=== PATIENT | male | born 1965 | race Caucasian/White ===

== ENCOUNTER 2023-12-30 21:33 | Inpatient (IN) | payer OTHER, SELFPAY ==
[2023-12-30] VITALS (9 sets, daily range): BP systolic 97–146; BP diastolic 59–95; BMI 39.1; BMI 38.3
--- NOTE | 2023-12-30 15:34 | ED.GENMED ---
History of Present Illness
<Boniat Hernandez PA-C - Last Filed: 12/30/23 20:25>
General
Chief Complaint: Heart Rate Problem
Source: patient
Exam Limitations: none
Time Seen by Provider: 12/30/23 15:32
Nursing documentation reviewed up to this point in time: agreed with
Travel History
Have you had any contact with someone who has COVID-19?: No
Do you have any symptoms of coronavirus? Fever > 100 degrees, chills, cough, shortness of breath, sore throat, loss of taste or smell, muscle aches, or headache?: No
History of Present Illness
History of Present Illness:
58-year-old male with a past medical history of sleep apnea, hypertension, type 2 diabetes, hypertension presenting emergency department today with concerns of a high heart rate. Patient was seeing his sleep doctor today for checkup with his sleep
apnea, when they did his vitals and saw that his heart rate was in the 150s. Patient states that this shocked him, as he currently has no symptoms. Patient denies palpitations, chest pain, shortness of breath, dizziness, lightheadedness. Patient
states that over the past 2 years, he has had intermittent palpitations but thought nothing of it and did not have any today. Patient states that he feels well, he denies fevers or chills, recent illnesses, recent hospitalizations. Patient does
have a high caffeine intake and drinks Diet Coke daily. Patient states that he never had anything like this before, has never went into an abnormal rhythm before. Patient states that his brother has had atrial fibrillation and his dad had some
heart disease later in life from smoking, but he denies any other family history of early cardiac disease.
<Erwin Hudson DO - Last Filed: 12/30/23 18:02>
Past History
ED Past Medical History: HTN, NIDDM and Other (Obstructive sleep apnea)
Review of Systems
<Bonita Hernandez PA-C - Last Filed: 12/30/23 20:25>
Review of Systems
All Other Systems: ROS reviewed and negative except as documented in HPI and ROS
Phy Exam
<Bonita Hernandez PA-C - Last Filed: 12/30/23 20:25>
Physical Exam
Physical Exam:
Vitals: Patient is tachycardic
General: Patient appears mildly anxious, generally well-appearing, nontoxic-appearing. Obese body habitus
Skin: Warm and dry, no rashes or lesions
Head: Normocephalic, atraumatic
Cardiac: Patient is tachycardic with a regular rhythm, no murmurs, rubs, gallop
Pulm: Normal respiratory effort, no wheezes, rales, rhonchi
Abdomen: No abdominal tenderness
Neuro: CN II-XII intact. AAOx3.
Course
<Bonita Hernandez PA-C - Last Filed: 12/30/23 20:25>
Orders/Labs/Results
Orders:
Orders
12/30/23 15:28
Electrocardiogram (*1) Urgent
Reason for Study: Tachycardia
EKG- Treatment ONCE
12/30/23 15:50
Complete Blood Count/With Diff Urgent
Comprehensive Metabolic Panel Urgent
TSH Reflex To Free T4 Urgent
Comment: ADDON
Troponin I Urgent
12/30/23 16:29
0.9% Sodium Chloride 1000 ml [Nss] 1,000 ml IV BOLUS
Diltiazem 125 mg/125 ml Nss [Cardizem] 125 mg in 125 ml IV NOW
Initial dose in mg/hr, then titrate:: 5
Titrate to keep:: Heart rate 80-100 bpm
Titrate by mg/hr:: 5 mg/hr
Frequency of titrations (minutes):: 15
Maximum dose in mg/hr:: 15
Diltiazem HCl [Cardizem] 10 mg IV NOW STA
12/30/23 17:34
Diltiazem HCl [Cardizem] 20 mg IV NOW STA
12/30/23 19:34
Diltiazem Extended Release [Cardizem Cd] 120 mg PO NOW STA
12/30/23 19:35
Electrocardiogram (*1) Urgent
Reason for Study: Tachycardia
EKG- Treatment ONCE
12/30/23 19:58
Add On- LAB Urgent
Tests Added?: TSH reflex T4
12/30/23 20:02
Heparin 4,000 units IV NOW STA
12/30/23 20:15
Heparin 31173 Units/250 ml 25,000 units in 250 ml IV PER PROTOCOL
Weight to be used for heparin protocol in kilograms (kg):: 120
Protocol:: Cardiac Tx/Acute Coronary
PTT Goal Range to be used:: PTT 73 to 111 seconds
Order type:: Initial
INITIAL Infusion Dose (UNITS/KG/hr) & then follow protocol:: 12 units/kg/hr
Infusion Dose in UNITS/hr & then follow protocol (UNITS/hr):: 1,000
INFUSION RATE in mL/hr & then follow protocol (mL/hr):: 10
PTT less than or equal to 64 seconds:: Increase rate by 200 units/hr (+ 2 mL/hr)
PTT 64.1 to 72.9 seconds:: Increase rate by 100 units/hr (+ 1 mL/hr)
PTT 73 to 111 seconds:: Target Range. No change in rate.
PTT 111.1 to 130.9 seconds:: Decrease rate by 100 units/hr (- 1 mL/hr)
PTT 131 to 199.9 seconds:: HOLD for 1 hr. Then decrease rate by 200 units/hr (- 2 mL/hr)
PTT greater than or equal to 200 seconds:: HOLD for 2 hrs & Notify Provider. Then decrease by 200 units/hr (-
2 mL/hr)
Lab follow-up:: Each change, PTT q6h until 2 consecutive are therapeutic. Then PTT
daily.
Abnormal Lab Results
12/30/23
15:50
MPV 10.8 H fL
(7.4-10.4)
Glucose 295 H mg/dl
(70-99)
12/30/23 15:50
12/30/23 15:50
Vital Signs
Initial and Last Documented VS:
Initial Vital Signs
Temp Pulse Resp BP Pulse Ox
98.2 F 150 18 146/93 97
12/30/23 15:27 12/30/23 15:27 12/30/23 15:27 12/30/23 15:27 12/30/23 15:27
Last Documented Vital Signs
Temp Pulse Resp BP Pulse Ox
98.2 F 99 28 104/59 97
12/30/23 15:27 12/30/23 19:45 12/30/23 19:45 12/30/23 19:38 12/30/23 19:45
<Erwin Hudson, - Last Filed: 12/30/23 18:02>
Orders/Labs/Results
Orders:
Orders
12/30/23 15:28
Electrocardiogram (*1) Urgent
Reason for Study: Tachycardia
EKG- Treatment ONCE
12/30/23 15:50
Complete Blood Count/With Diff Urgent
Comprehensive Metabolic Panel Urgent
TSH Reflex To Free T4 Urgent
Comment: ADDON
Troponin I Urgent
12/30/23 16:29
0.9% Sodium Chloride 1000 ml [Nss] 1,000 ml IV BOLUS
Diltiazem 125 mg/125 ml Nss [Cardizem] 125 mg in 125 ml IV NOW
Initial dose in mg/hr, then titrate:: 5
Titrate to keep:: Heart rate 80-100 bpm
Titrate by mg/hr:: 5 mg/hr
Frequency of titrations (minutes):: 15
Maximum dose in mg/hr:: 15
Diltiazem HCl [Cardizem] 10 mg IV NOW STA
12/30/23 17:34
Diltiazem HCl [Cardizem] 20 mg IV NOW STA
12/30/23 19:34
Diltiazem Extended Release [Cardizem Cd] 120 mg PO NOW STA
12/30/23 19:35
Electrocardiogram (*1) Urgent
Reason for Study: Tachycardia
EKG- Treatment ONCE
12/30/23 19:58
Add On- LAB Urgent
Tests Added?: TSH reflex T4
12/30/23 20:02
Heparin 4,000 units IV NOW STA
12/30/23 20:15
Heparin [id number] Units/250 ml 25,000 units in 250 ml IV PER PROTOCOL
Weight to be used for heparin protocol in kilograms (kg):: 120
Protocol:: Cardiac Tx/Acute Coronary
PTT Goal Range to be used:: PTT 73 to 111 seconds
Order type:: Initial
INITIAL Infusion Dose (UNITS/KG/hr) & then follow protocol:: 12 units/kg/hr
Infusion Dose in UNITS/hr & then follow protocol (UNITS/hr):: 1,000
INFUSION RATE in mL/hr & then follow protocol (mL/hr):: 10
PTT less than or equal to 64 seconds:: Increase rate by 200 units/hr (+ 2 mL/hr)
PTT 64.1 to 72.9 seconds:: Increase rate by 100 units/hr (+ 1 mL/hr)
PTT 73 to 111 seconds:: Target Range. No change in rate.
PTT 111.1 to 130.9 seconds:: Decrease rate by 100 units/hr (- 1 mL/hr)
PTT 131 to 199.9 seconds:: HOLD for 1 hr. Then decrease rate by 200 units/hr (- 2 mL/hr)
PTT greater than or equal to 200 seconds:: HOLD for 2 hrs & Notify Provider. Then decrease by 200 units/hr (-
2 mL/hr)
Lab follow-up:: Each change, PTT q6h until 2 consecutive are therapeutic. Then PTT
daily.
Abnormal Lab Results
12/30/23
15:50
MPV 10.8 H fL
(7.4-10.4)
Glucose 295 H mg/dl
(70-99)
12/30/23 15:50
12/30/23 15:50
Vital Signs
Initial and Last Documented VS:
Initial Vital Signs
Temp Pulse Resp BP Pulse Ox
98.2 F 150 18 146/93 97
12/30/23 15:27 12/30/23 15:27 12/30/23 15:27 12/30/23 15:27 12/30/23 15:27
Last Documented Vital Signs
Temp Pulse Resp BP Pulse Ox
98.2 F 99 28 104/59 97
12/30/23 15:27 12/30/23 19:45 12/30/23 19:45 12/30/23 19:38 12/30/23 19:45
<Bonita Hernandez PA-C - Last Filed: 12/30/23 20:25>
MDM/Problems Addressed
Differential Diagnosis Includes:
Differentials include atrial flutter, atrial fibrillation, multifocal atrial tachycardia, ACS, PE, panic disorder
MDM/Problems Addressed:
High heart rate
Chronic conditions affecting care: DM, HTN and Other (sleep apnea)
Acute Exacerbation and/or Progression of Chronic Illness: DM, HTN and Other (sleep apnea)
<Erwin Hudson DO - Last Filed: 12/30/23 18:02>
MDM/Problems Addressed
MDM/Problems Addressed:
High heart rate, atrial flutter with RVR, hyperglycemia
<Bonita Hernandez PA-C - Last Filed: 12/30/23 20:25>
*Pulse Oximetry
Patient hypoxic: no
*EKG
Interpreted by ED Provider?: Yes
EKG Intrepretation Date: 12/30/23
Interpretation: abnormal
Comparison EKG: no comparison EKG present
Heart Rate: 144
Rate: tachycardiac
Rhythm: atrial flutter
[place]: normal axis
QRS Pattern: normal QRS
Ischemia: no ischemia
<Erwin Hudson DO - Last Filed: 12/30/23 18:02>
*[employer] Interpretation
Rate: tachycardiac
Interpretation: abnormal
Rhythm: atrial flutter
*Critical Care Note
Total Time (30-74mins, 75-104mins- exclusive of procedures): 45 minutes
Data Reviewed
Source: patient and spouse
Prescriptions/Medications Considered But Not Given:
Consider beta-blockers but will titrate Cardizem
<Bonita Hernandez PA-C - Last Filed: 12/30/23 20:25>
Patient Management
Escalation/DeEscalation of care consider admission/obs:
58-year-old male with a past medical history of sleep apnea, hypertension, type 2 diabetes, hypertension presenting emergency department today with concerns of a high heart rate, sent from his sleep doctor. Patient is completely asymptomatic.
Patient was found to be in atrial flutter with a 2-1 conduction. Patient was started on a Cardizem drip given IV fluids. This brought his rate down to 110s. Occasionally, his rate dropped into the 90s but then it would return to the 100s again.
Patient states that he occasionally get palpitations intermittently for the past 2 years, so unsure when this might of started. Cardiology notified via [place] text, recommends admission considering heparin drip. Patient in agreement with plan,
patient accepted by hospitalist. Patient remains asymptomatic.
<Bonita Hernandez PA-C - Last Filed: 12/30/23 20:25>
Update Note
Update Note:
7:16-- Reevaluated patient, patient states that he is feeling well, remains asymptomatic,
ED Attending Note
<Bonita Hernandez PA-C - Last Filed: 12/30/23 20:25>
-
Portions of this chart may have been created with voice recognition software.� Occasional wrong word or��sound alike� substitutions may have occurred due to the inherent limitations of voice recognition software.
<Erwin Hudson DO - Last Filed: 12/30/23 18:02>
ED Attending Note
Patient seen and examined by attending physician: Yes
I performed the substantive portion of visit, reviewed & personally made and approve the management plan that is documented in note by myself or TAINA.: Yes
ED Attending Note:
58-year-old male with a history of obstructive sleep apnea who presents after he is found to be tachycardic. Found to be in atrial flutter. Patient is mostly asymptomatic. Unknown onset. He does admit to occasional off-and-on palpitations over
time. Exam: Awake and alert, heart regular, no murmurs, obese, lungs clear. Assessment and plan: Controlled rate. Unknown onset so ED cardioversion is not reasonable. Continue to monitor. IV fluids. The patient was counseled on the importance
of blood glucose control as well as proper diet and exercise. Likely obstructive sleep apnea leading to atrial stretch and atrial flutter. Continue to monitor closely
Discharge Plan
Departure
Patient Disposition: Admit
Date of Disposition: 12/30/23
Time of Disposition: 20:19
Admit to doctor: Dr. Alva
Presentation/result/management discussed w/ accepting MD/DO: Hospitalist
Discharge Problem:
Atrial flutter
Prescriptions:
No Action
metformin 1,000 mg Tablet
1,000 mg PO BID
atorvastatin 80 mg Tablet
80 mg PO DAILY
lisinopril 10 mg Tablet
10 mg PO BID
dapagliflozin propanediol [Farxiga] 10 mg Tablet
10 mg PO DAILY
ezetimibe 10 mg Tablet
10 mg PO DAILY
Referrals:
Deborah Martin DO [Family Provider] -
Interventions
Interventions:
*Risk Screen - Suicide Last Done: 12/30/23 15:27
*General Assessment Last Done: 12/30/23 15:56
*Neglect/Abuse Screening Last Done: 12/30/23 15:27
ED- Fall Risk Assessment Last Done: 12/30/23 15:56
*ED COVID-19 Vaccine History Last Done: 12/30/23 15:56
ED- Cardiac Assessment Last Done: 12/30/23 15:56
ED- Pulmonary Assessment Last Done: 12/30/23 15:56
[2023-12-30 16:01] LABS: % Basophils 0.8 % (0-2); % Eosinophils 0.5 % (0-6); % Immature Granulocytes 0.3 % (0-0.5); % Lymphocytes 30.2 % (20.5-51.1); % Monocytes 8.6 % (1.7-9.3); % Neutrophils 59.6 % (42.2-75.2); Absolute Basophils 0.1 10^3/uL (0-0.2); Absolute Monocytes 0.6 10^3/uL (0.1-0.6); Hematocrit 44.3 % (39.0-52.0); Hemoglobin 15.9 g/dL (13.0-18.0); Mean Corp Hgb Conc. 35.9 g/dL (33.0-37.0); Mean Corpuscular Hgb 29.9 pg (27.0-31.0); Mean Corpuscular Volume 83.3 fL (80.0-94.0); Mean Platelet Volume 10.8 fL (7.4-10.4); Nucleated Red Blood Cells % 0 % (-); Platelet Count 194 10^3/uL (130-400); Red Blood Cell Count 5.32 10^6/uL (4.70-6.10); Red Cell Dist. Width 12.7 % (11.5-14.5); White Blood Cell Count 6.6 10^3/uL (4.8-10.8)
[2023-12-30 16:19] LABS: ALT (SGPT) 27 U/L (0-50); AST (SGOT) 23 U/L (17-59); Albumin 4.3 g/dl (3.5-5.0); Alkaline Phosphatase 99 U/L (38-126); Blood Urea Nitrogen 15 mg/dl (9-20); Calcium 9.5 mg/dl (8.4-10.2); Carbon Dioxide 23 mmol/L (22-30); Chloride 103 mmol/L (98-107); Estimated Creatinine Clearance > 125 ml/min; Glucose 295 mg/dl (70-99); Potassium 4.3 mmol/L (3.5-5.1); Sodium 139 mmol/L (135-145); Total Bilirubin 0.7 mg/dl (0.2-1.3); eGFR > 60.00
[2023-12-30 16:24] LABS: Troponin I < 0.012 ng/ml
[2023-12-30] MEDS: NSS 1000 IV (16:38)
[2023-12-30] MEDS: CARDIZEM 10 MG IV (16:39)
[2023-12-30] MEDS: CARDIZEM 125 IV (16:44)
[2023-12-30] MEDS: CARDIZEM 20 MG IV (17:53)
[2023-12-30] MEDS: CARDIZEM CD 120 MG PO (19:38)
--- NOTE | 2023-12-30 21:11 | HPS.HSE ---
Family Physician
-
Family Physician: Deborah Martin
Chief Complaint
-
Rapid Heart Beat
History of Present Illness
Patient is a 58y M with PMH significant for FRANCISCA and DM-II who presents to ED for evaluation of rapid heart rate. Patient notes that he was seeing his sleep physician this afternoon for a routine visit and was noted to have a heart rate of 150
bpm. He was asymptomatic. Patient was advised to presented to the ED and tele / EKG here reveals atrial flutter with 2:1 block. Patient states that she has occasional palpitations / racing heart sensations. These started about 2 years ago after
having COVID. They are infrequent and resolve quickly. He did not have such symptoms today despite his heart rate of 150.
In the ED, patient is resting comfortably and has no complaints.
He notes that his brother has had A-Fib. His mother and father both had heart disease.
Medical History
Past Medical History
Past Medical History: Reports Other
Additional Past Medical History:
DM-II
FRANCISCA on CPAP
Obesity
Past Surgical History: Reports None and Other
Social History
Tobacco: Non-smoker
Alcohol: Occasional
Drug: None
Family History
Family History: Other (Brother: A-Fib Father: COPD, CAD Mother: CAD)
Allergies / Home Medications
Allergies reflects when Allergies were last updated in [employer].
Home Medications with original date entered in [employer]
Allergy/Medication List:
Allergies
Allergy/AdvReac Type Severity Reaction Status Date / Time
No Known Allergies Allergy Verified 12/30/23 15:54
Home Medications
atorvastatin 80 mg tablet 80 mg PO DAILY 12/30/23
dapagliflozin propanediol 10 mg tablet (Farxiga) 10 mg PO DAILY 12/30/23
ezetimibe 10 mg tablet 10 mg PO DAILY 12/30/23
lisinopril 10 mg tablet 10 mg PO DAILY 12/30/23
metformin 1,000 mg tablet 1,000 mg PO BID 12/30/23
Review of Systems
-
History Source: Patient
A 12 point ROS was completed and negative except as noted: Yes
Constitutional: Denies Fever, Fatigue or Chills
Respiratory: Denies Cough or Trouble Breathing
Cardiac: Denies Chest Pain or Palpitations
Abdomen/GI: Denies Abdominal Pain, Nausea, Vomiting or Diarrhea
: Denies Dysuria, Frequency or Flank Pain
Musculoskeletal: Denies Joint Pain or Edema
Neurological: Denies Dizzy or Headache
Psych: Denies Depression or Anxiety
Physical Exam
Vital Signs
Vital Signs
Temp Pulse Resp BP Pulse Ox
98.2 F 99 28 104/59 97
12/30/23 15:27 12/30/23 19:45 12/30/23 19:45 12/30/23 19:38 12/30/23 19:45
Physical Exam
General: Other (58y M in no acute distress.)
HEENT: Moist mucous membranes and Other (Thick neck.)
Respiratory: Clear; No Wheezes, Rales or Rhonchi
Cardiac: S1/S2 and Irregular Rhythm; No Murmur
GI: Soft, Non Tender, Non Distended and Normal Bowel Sounds
Musculoskeletal: No Clubbing, No Cyanosis and No Edema
Neuro: AO x 3
Laboratory Results
-
12/30/23 15:50
12/30/23 15:50
Laboratory Results
Total Bilirubin 0.7 mg/dl (0.2-1.3) 12/30/23 15:50
AST 23 U/L (17-59) 12/30/23 15:50
ALT 27 U/L (0-50) 12/30/23 15:50
Alkaline Phosphatase 99 U/L (38-126) 12/30/23 15:50
Troponin I < 0.012 ng/ml 12/30/23 15:50
Impression/Plan
-
A/P: Patient is a 58y F with PMH significant for DM-II and FRANCISCA on CPAP who presents to ED for evaluation of incidentally noted tachycardia.
Atrial Flutter
- Admit to IVU on Cardizem infusion and titrate as needed for rate control.
- Begin IV heparin infusion for anticoagulation.
- As patient is asymptomatic, onset is unknown.
- Cardiology evaluation in AM for additional recommendations / options.
- EKG with any new rhythm changes.
DM-II
- Stable. Hold PO meds acutely.
- Follow glucose and cover with SSI as needed.
- Update A1C.
FRANCISCA on CPAP
- Stable. Continue HS PAP therapy during stay. Patient has home unit with him.
Obesity due to excess calories
- Affects all aspects of care.
- Encourage healthy diet and increased exercise with goal of weight loss.
DVT Prophylaxis: On IV Heparin
Code Status: Full
[2023-12-30 21:17] LABS: TSH Reflex To Free T4 1.96 uIU/ml (0.47-4.68)
[2023-12-30 21:44] LABS: INR 1.03; PT 13.5 Sec (11.4-14.6)
[2023-12-30 21:45] LABS: APTT 27.3 Sec (23.4-35.0)
[2023-12-30] MEDS: HEPARIN 4000 UNITS IV (22:18)
[2023-12-30] MEDS: HEPARIN 25000 UNITS/250 ML IV (22:21)
--- NOTE | 2023-12-31 00:08 | PTCARENOTE ---
received patient from the ED. AAOx3. denies any pain. denies sob/palps. Aflutter on tele. HR currently 80s. cardizem gtt lowered to 10 ml/hr. bp stable. heparin gtt infusing at 10 ml/hr. 96% on RA. patient has own CPAP at the bedside. distilled
water provided. reviewed plan of care with patient and verbalized understanding. NPO at midnight. educated patient to inform RN with any changes. call shannon within reach.
[2023-12-31 00:41] VITALS: BP 105/71
[2023-12-31] MEDS: CARDIZEM 125 IV (01:30)
[2023-12-31 02:44] VITALS: BP 109/75
[2023-12-31 04:23] VITALS: BP 95/61
[2023-12-31 05:11] LABS: APTT 37.1 Sec (23.4-35.0)
[2023-12-31 05:19] LABS: Blood Urea Nitrogen 13 mg/dl (9-20); Calcium 8.8 mg/dl (8.4-10.2); Carbon Dioxide 22 mmol/L (22-30); Chloride 108 mmol/L (98-107); Estimated Creatinine Clearance > 125 ml/min; Glucose 167 mg/dl (70-99); Magnesium 1.8 mg/dl (1.6-2.3); Potassium 3.8 mmol/L (3.5-5.1); Sodium 136 mmol/L (135-145); eGFR > 60.00
[2023-12-31 06:52] VITALS: BP 115/84
[2023-12-31 06:55] LABS: Glucose - Point of Care 177 mg/dl (70-99)
--- NOTE | 2023-12-31 07:26 | CON.CAR ---
Addendum entered and electronically signed by Kaden Iglesias MD 12/31/23 12:18:
I saw and examined the patient.
The Scaffolding Helper's note was reviewed and I agree with the note.
Comment: Briefly, 58-year-old man past medical history of hypertension, hyperlipidemia, type 2 diabetes and FRANCISCA who presents after found to have tachycardia in the outpatient sleep medicine office
Evaluated in the [facility] and found to be in atrial flutter with rapid ventricular response
Was started on IV diltiazem for rate control and IV heparin for cardioembolic prophylaxis
Underwent LANNY direct-current cardioversion earlier today with presybeterian of normal sinus rhythm
Plan to discharge on Eliquis for cardioembolic prophylaxis, emphasized the importance of this medication
Plan for low-dose metoprolol 25mg daily for rate control
Outpatient contact assembler to be placed at time of discharge to assess for burden of arrhythmia
EP follow-up has been arranged
Original Note:
Consultation
Consultation Request
Date/Time Consultation Requested: 12/30/2023
Date/Time Consultation Performed: 12/31/2023
Requesting Provider: Dr. Alva
Performing Provider: Valeria Young PA-C for Dr. Henry
Reason for Consultation: Atrial flutter w/ RVR
Medical History
-
History of Present Illness:
Patient is a 58 year old male with past medical history significant for hypertension, hyperlipidemia, type 2 diabetes, obstructive sleep apnea with CPAP, obesity who presented 12/30/2023 with palpitations and tachycardia. Patient presented to his
sleep medicine physician for routine follow-up and was noted to be tachycardic. He admits to intermittent occasional palpitations at rest but otherwise was asymptomatic. He was instructed to go to the emergency department where he was found to be
in atrial flutter with rapid ventricular response. Troponin was negative. TSH 1.96. He was placed on IV heparin and IV diltiazem drip with improvement of heart rates. Patient states he is generally compliant with his CPAP. However he does fall
asleep most nights of the week on the couch for several hours before he goes to bed and uses his CPAP. He drinks socially 1 night a week with friends. At time of this evaluation patient sitting in bed resting comfortably. He denies chest pain,
shortness of breath, dizziness, lightheadedness, palpitations, edema, orthopnea or PND
PMH:
Hypertension
Hyperlipidemia
Type 2 DM
FRANCISCA on CPAP
Obesity
Cellulitis x 2
Past Medical History
Past Medical History: Other (See HPI)
Past Surgical History: None
Social History
Tobacco: Non-Smoker
Alcohol: Occasional (1-2 times a week)
Drug: None
Personal:
Living: With Family
Employment: Employed (Desk job)
Family History
Family History: Other (Brother: A-Fib, Father: COPD, CAD, Mother: CAD)
Allergies / Home Medications
Allergy/AdvReac Type Severity Reaction Status Date / Time
No Known Allergies Allergy Verified 12/30/23 15:54
Medication Instructions Recorded Confirmed Type
atorvastatin 80 mg tablet 80 mg PO DAILY High Cholesterol 12/30/23 12/30/23 History
dapagliflozin propanediol 10 mg 10 mg PO DAILY Diabetes 12/30/23 12/30/23 History
tablet (Farxiga)
ezetimibe 10 mg tablet 10 mg PO DAILY Hormonal Agent 12/30/23 12/30/23 History
lisinopril 10 mg tablet 10 mg PO DAILY Blood Pressure 12/30/23 12/30/23 History
metformin 1,000 mg tablet 1,000 mg PO BID Diabetes 12/30/23 12/30/23 History
Review of Systems
-
History Source: Patient
All other systems: Negative unless noted
Physical Exam
Vital Signs
Temp Pulse Resp BP Pulse Ox
97.7 F 74 18 95/61 97
12/31/23 06:50 12/31/23 06:50 12/31/23 06:50 12/31/23 04:23 12/31/23 06:50
GEN: No distress, awake, Ox3
HEENT: supple, anicteric, mmm
LUNGS: CTA, no wheezes/rales
CV: Reg, S1/S2, no murmur, rubs or gallops
ABD: soft, BS+, NT/ND
EXT: No edema, clubbing or cyanosis
NEURO: Gross non-focal
SKIN: No rash, warm, dry, pink
Lab Results
12/30/23 15:50
12/31/23 04:38
Troponin I < 0.012 ng/ml 12/30/23 15:50
Impression / Plan
-
Family Physician:� Deborah Martin
Chute Operator: None prior to admission, initial consult Dr Henry
Impression:
Presented 12/30/2023 with palpitations, tachycardia
Atrial flutter 2:1 w/ RVR, unknown duration
Hypertension
Hyperlipidemia
Type 2 DM
FRANCISCA on CPAP
Obesity
Cellulitis x 2
LANNY 12/31/2023: pending
Plan:
Patient is a 58 year old male with past medical history significant for hypertension, hyperlipidemia, type 2 diabetes, obstructive sleep apnea with CPAP, obesity who presented 12/30/2023 with palpitations and tachycardia. Patient presented to his
sleep medicine physician for routine follow-up and was noted to be tachycardic. He admits to intermittent occasional palpitations at rest but otherwise was asymptomatic. He was instructed to go to the emergency department where he was found to be
in atrial flutter with rapid ventricular response. Troponin was negative. TSH 1.96. He was placed on IV heparin and IV diltiazem drip with improvement of heart rates. Patient states he is generally compliant with his CPAP. However he does fall
asleep most nights of the week on the couch for several hours before he goes to bed and uses his CPAP. He drinks socially 1 night a week with friends. At time of this evaluation patient sitting in bed resting comfortably. He denies chest pain,
shortness of breath, dizziness, lightheadedness, palpitations, edema, orthopnea or PND.
Presented 12/30/2023 with palpitations and tachycardia and was noted to be in atrial flutter with rapid ventricular response
Typical atrial flutter with RVR, unknown duration
-Heart rates overall improved with IV diltiazem drip.
-Plan is for LANNY cardioversion today
-Keep n.p.o.
-Will start Eliquis 5 mg twice a day and stop heparin gtt
-Will have case management due cost analysis for Eliquis
-Will assess LV function and valves w/ with LANNY. Based on EF will decide if patient should be placed on beta-wanda (if EF is reduced) or calcium channel wanda (if EF is preserved).
-Patient would be ideal candidate for atrial flutter ablation. Will arrange for patient to go home with 5-day [place] [facility] monitor to see if he is having any atrial fibrillation in addition to his atrial flutter to help further guide long-term course
regarding Ablation (Typical Aflutter vs PVI w/ Aflutter ablation) he would need as outpatient.
-Follow up with EP as outpatient
Obstructive sleep apnea on CPAP. Patient reports good compliance continue to follow with outpatient sleep medicine physician
History of diabetes
-Continue metformin, Farxiga and lisinopril.
Data Reviewed
-
EKG: Report Reviewed by me, Discussed with Physician, Discussed with Nurse and Discussed with Patient
Labs: Labs Reviewed by me, Discussed with Physician, Discussed with Nurse and Discussed with Patient
Old Records: Reviewed
[2023-12-31] MEDS: LIPITOR 80 MG PO (07:50)
--- NOTE | 2023-12-31 07:58 | W.PN.HOSP.TC ---
Today's Communication/Plan
-
discharge
Assessment / Plan
Assessment / Plan
Physical Exam
General: No acute distress appears comfortable
HEENT: Moist mucous membranes Thick neck
Respiratory: Clear; No Wheezes, Rales or Rhonchi
Cardiac: S1/S2 NSR
GI: Soft, Non Tender, Non Distended Normal Bowel Sounds
Musculoskeletal: No Clubbing, No Cyanosis and No Edema
Neuro: AO x 3
A/P:� Patient is a 58F with PMH significant for DM-II and FRANCISCA on CPAP who presents to ED for evaluation of incidentally noted tachycardia.
Atrial Flutter
- Admitted to IVU
-cardizem gtt completed, started on metoprolol
- hep gtt transitioned to [facility]
- As patient is asymptomatic, onset is unknown.
Cardiology eval appreciated
-successful Cardioversion 12/30
-outpatient lunchroom monitor placed
DM-II
�- A1c appreciated 9.8
-sugars otherewise well controlled during say
-Home oral diabetic medications resumed
�- outpatient follow up with patient's footwear sales associate recommended
FRANCISCA on CPAP
�- Stable.� Continue HS PAP therapy during stay.� Patient has home unit with him.
Obesity due to excess calories
�- Affects all aspects of care.
�- Encourage healthy diet and increased exercise with goal of weight loss.
DVT Prophylaxis:� On IV Heparin completed transitioned to Eliquis as above
Code Status:� Full
Medically stable for discharge home with outpatient follow up recommendations
Discussed with patient and his Kaley
Total Time Preparing Discharge __45 minutes including examination of the patient, summary of the hospital stay, instructions for continuing care to all relevant caregivers; and preparation of discharge records, prescriptions, and referral
forms if necessary.
Anticipated Discharge: Today
Subjective/Interval History
-
Date of Service: December 31, 2023
No acute distress sitting up comfortably in bed. Reports overall feeling well.. Status post cardioversion patient remains in NSR
Objective Data
-
Labs:
Laboratory Results
12/30/23 12/31/23 12/31/23
21:11 04:38 11:40
PT 13.5
INR 1.03
APTT 27.3 37.1 H Pending
Sodium 136
Potassium 3.8
Chloride 108 H
Carbon Dioxide 22
BUN 13
Creatinine 0.7
Glucose 167 H
Calcium 8.8
Vital Signs:
Vital Signs
Temp Pulse Resp BP Pulse Ox
97.7 F 74 18 95/61 97
12/31/23 06:50 12/31/23 06:50 12/31/23 06:50 12/31/23 04:23 12/31/23 06:50
I&O
12/30/23 12/31/23 01/01/24
06:59 06:59 06:59
Output Total 375 / 375
Balance -375 / -375
[2023-12-31 08:53] LABS: Glycohemoglobin (HgbA1c) 9.8 % (4.0-5.6)
[2023-12-31] MEDS: NOVOLOG FLEXPEN-LOW RESISTANCE 1 UNITS SC ×2 (08:59→17:09)
[2023-12-31 09:00] VITALS: BMI 38.3
[2023-12-31] MEDS: ELIQUIS 5 MG PO (09:02)
--- NOTE | 2023-12-31 09:50 | CM ---
[employer] thru patient's pharmacy plan, [facility] [employer]: [phone]. Estimated copay for [place] is $40/mo. Pt. will qualify for free 30 d coupon and $10/mo coupon. Will place those coupons in his chart. TT to JOE to update.
--- NOTE | 2023-12-31 10:41 | CM ---
CM following for DC planning needs.
Met w/ patient at bedside to complete initial assessment. Pt. resides w/ spouse in a private, 2 story home. Functionally, patient is indep. w/ ADLs, mobility without the use of any assisted device. Pt. has CPAP at home, which he uses regularly.
Reviewed anticipated cost of Eliquis and coupons; patient aware.
Pt. has Rx plan and uses [facility] in [place].
Anticipated DC plan is for home, no needs.
Will cont. to follow.
--- NOTE | 2023-12-31 12:15 | ITS.CL.CARDI ---
Sheet Metal Apprentice - Cardioversion
Cardioversion
Procedure Report:
Procedure: LANNY-guided electrical cardioversion
Pre-operative diagnosis: Persistent atrial flutter
Post-operative diagnosis: Persistent atrial flutter status post DC cardioversion to sinus rhythm
Anesthesia: MAC
Attending Physician: Kaden Iglesias MD
Procedure Description: The patient was brought to the electrophysiology laboratory in the fasting state. Informed consent was obtained from the patient prior to the start of the procedure. Adherence to anticoagulation was confirmed. Electrodes were
placed on the patient and connected to an external defibrillator. Monitoring of blood pressure, ECG tracings, and pulse oximetry was initiated. The pads were applied to the patient in the anterior and posterior positions. The patient was sedated by
the anesthesiologist. A LANNY (reported separately) was performed prior to the cardioversion. No left atrial or left atrial appendage thrombus was seen. After the LNANY probe was removed, a 200 joule biphasic synchronized shock was delivered to the
patient under MAC anesthesia. Sinus rhythm was successfully restored. The patient recovered uneventfully from MAC anesthesia. There were no immediate post-procedure complications. The patient left the lab in good condition. The attending physician
was present throughout the entire procedure.
Impression: Successful LANNY-guided direct current cardioversion with moravian of sinus rhythm after one 200 joule biphasic synchronized shock.
[2023-12-31] MEDS: NOVOLOG FLEXPEN-LOW RESISTANCE SC (12:51)
[2023-12-31 12:53] LABS: Glucose - Point of Care 140 mg/dl (70-99)
--- NOTE | 2023-12-31 12:58 | PTCARENOTE ---
Pt returned from LANNY/CV awake, alert and oriented. Pt in SR in the 70's. Pt ambulating ad balbir in the room.
[2023-12-31 14:06] VITALS: BP 123/80
[2023-12-31] MEDS: TOPROL XL 25 MG PO (14:08)
[2023-12-31 16:00] VITALS: BP 124/78
[2023-12-31] MEDS: GLUCOPHAGE 1000 MG PO (16:46)
--- NOTE | 2023-12-31 17:12 | W.DCSUMMARY ---
Discharge Summary
Discharge Data
Date of Admission: 12/30/23
Date of Discharge: 12/31/23
-
Pending Results: No
Discharge Plan
-
Patient Disposition: Home (Routine Discharge)
Discharge Diagnosis/Procedures: Atrial Flutter status post successful cardioversion, Diabetes, Hypertension, Hyperlipidemia, Obstructive Sleep Apnea, Obesity
Condition: Good
Diet: Low Cholesterol
Activity: As tolerated
Driving Restrictions: As prior to admission
Bathing Restrictions: None
Blood Work: Please repeat HgbA1c with primary care provider or endocrinology in 3 months of discharge. Most recent A1c 9.8
Activity Restrictions/Additional Instructions:
Please follow up with primary care provider in 1 week of discharge, keep your appointment with Cardiology, and follow up with your Physicist Acoustics in 2-4 weeks of discharge.
You have been started on Eliquis for stroke prophylaxis atrial flutter.
Metoprolol has been started for heart rate control atrial flutter.
Please take medications as prescribed/recommended and follow up with primary care provider and/or other healthcare provider involved in your care for refills and/or further adjustments to your medication regimen as necessary.
Instructions: Atrial Flutter (DC)
Referrals:
Deborah Martin DO [Family Provider] - in one week
Richar Henry DO [Active] - 02/01/24 8:00 am (You have a cardiology follow up with managing consultant clinical professor, Dr. Henry on January 31 at 8 am in [address] in the [place] which is located behind the hospital. If you are unable to make this
appointment please call [phone] to reschedule. )
Prescriptions:
New
Eliquis 5 mg Tablet
5 mg PO BID 30 Days Qty: 60 0RF
metoprolol succinate 25 mg Tablet Extended Release 24 Hr
25 mg PO DAILY 30 Days Qty: 30 0RF
Continued
metformin 1,000 mg Tablet
1,000 mg PO BID
atorvastatin 80 mg Tablet
80 mg PO DAILY
lisinopril 10 mg Tablet
10 mg PO DAILY
dapagliflozin propanediol [Farxiga] 10 mg Tablet
10 mg PO DAILY
ezetimibe 10 mg Tablet
10 mg PO DAILY
Discharge Orders:
Discharge Patient (As Directed); Ordered 12/31/23
Ordered By: Nazanin Guzmán
Care Plan Goals
Care Plan Goals:
Problem: Readiness for enhanced knowledge related to diagnosis and treatment plan
Goal: Understand your diagnosis and treatment plan needs, including medications if applicable.
Instructions: Know your diagnosis, underlying causes and treatment plan options, including medications if applicable. Consult with your health care team to learn about your diagnosis and treatment plan, including medications if applicable.
[2023-12-31 17:15] LABS: Glucose - Point of Care 170 mg/dl (70-99)
--- NOTE | 2023-12-31 18:28 | PTCARENOTE ---
Pt remained in afib post cardioversion. Pt discharged to home with his . Discharge instructions given and reviewed with pt and his with good understanding and all questions answered.
== END 2023-12-31 17:57 | disposition home or self-care (01) | DRG 310 ==
LOC: IVU 21:33
PROVIDERS: Emergency Medicine; ADMITTING PHYSICIAN Hospitalist; ATTENDING PHYSICIAN Internal Medicine; EMERGENCY PHYSICIAN Emergency Medicine; FAMILY PHYSICIAN Family Medicine; OTHER PHYSICIAN Internal Medicine Cardiovascular Disease
PROC: 5A2204Z Restoration of Cardiac Rhythm, Single (ICD-10-PCS; 2023-12-31)
PROC: 5A09357 Assistance with Respiratory Ventilation, Less than 24 Consecutive Hours, Continuous Positive Airway Pressure (ICD-10-PCS; 2023-12-31)
PROC: B24BZZ4 Ultrasonography of Heart with Aorta, Transesophageal (ICD-10-PCS; 2023-12-31)
DX: I48.3 Typical atrial flutter (principal); I10 Essential (primary) hypertension; E11.9 Type 2 diabetes mellitus without complications; G47.33 Obstructive sleep apnea (adult) (pediatric); E66.09 Other obesity due to excess calories; E78.00 Pure hypercholesterolemia, unspecified; Z79.84 Long term (current) use of oral hypoglycemic drugs; Z79.01 Long term (current) use of anticoagulants; Z82.49 Family history of ischemic heart disease and other diseases of the circulatory system; Z86.16 Personal history of COVID-19; Z68.38 Body mass index [BMI] 38.0-38.9, adult
CPT/HCPCS: 80048; 80053; 82962; 83036; 83735; 84443; 84484; 85025; 85610; 85730; 92960; 93005; 93312; 93320; 93325; 96374; 96376; 99291